=== PATIENT | female | born 1965 | race Caucasian/White ===

== ENCOUNTER 2024-11-15 19:29 | Emergency (ER) | payer OTHER ==
[~2024-11-15] VITALS: Ht 165.1 cm; Wt 79.0 kg
[2024-11-15 20:22] VITALS: TEMP 36.8
[2024-11-15] MEDS: ALBUTEROL (0.083%) 2.5MG/3ML NEB HHN ONE (21:13)
[2024-11-15 21:14] VITALS: PULSE 105; RESP 20; O2SAT 96
[2024-11-15] MEDS: PREDNISONE 20MG TABLET PO ONE (21:39)
[2024-11-15] MEDS: ACETAMINOPHEN 500MG TABLET PO ONE (21:39)
[2024-11-15] MEDS ORDERED: ALBU18HF2 IH (21:59)
[2024-11-15] MEDS ORDERED: ALBU05 NEB (21:59)
[2024-11-15] MEDS ORDERED: ACET-2708 MT (21:59)
[2024-11-15] MEDS ORDERED: P50 MT (21:59)
[2024-11-15 22:29] VITALS: BP 106/67; PULSE 93; RESP 18; O2SAT 97
[2024-11-15 23:21] LABS: INFLUENZA TYPE A Presumptive Negative (Pres. Neg.); INFLUENZA TYPE B Presumptive Negative (Pres. Neg.)
== END 2024-11-15 22:33 | disposition home or self-care (01) ==
LOC: ER 19:29
DX: U07.1 COVID-19 (principal); I10 Essential (primary) hypertension; J45.909 Unspecified asthma, uncomplicated; Z86.39 Personal history of other endocrine, nutritional and metabolic disease
CPT/HCPCS: 99284; 71045; 87426; 87804 ×2; 94640; J7512; 94070; 94664; 98960